=== PATIENT | female | born 1975 | race Caucasian/White ===

== ENCOUNTER 2018-08-31 18:16 | Emergency (ER) | payer MEDICAID ==
[~2018-08-31] VITALS: Ht 154.9 cm; Wt 66.2 kg
[2018-08-31 18:18] VITALS: Ht 154.9 cm; Wt 66.2 kg
[2018-08-31 19:35] VITALS: BP 144/90
== END 2018-08-31 19:35 | disposition home or self-care (01) ==
LOC: ED 18:16
DX: M75.31 Calcific tendinitis of right shoulder (principal); E11.9 Type 2 diabetes mellitus without complications
CPT/HCPCS: J1885